=== PATIENT | female | born 1950 | race African-American/Black ===

== ENCOUNTER 2025-04-28 09:13 | Inpatient (IN) | payer MEDICARE, OTHER, SELFPAY ==
[2025-04-26] VITALS (8 sets, daily range): BP systolic 143–206; BP diastolic 84–101; BMI 38.8
[2025-04-26 15:24] LABS: % Basophils 0.3 % (0-2); % Eosinophils 5.2 % (0-6); % Immature Granulocytes 0.5 % (0-0.5); % Lymphocytes 26.5 % (20.5-51.1); % Monocytes 7.4 % (1.7-9.3); % Neutrophils 60.1 % (42.2-75.2); Absolute Eosinophils 0.3 10^3/uL (0-0.7); Absolute Lymphocytes 1.7 10^3/uL (1.2-3.4); Absolute Monocytes 0.5 10^3/uL (0.1-0.6); Absolute Neutrophils 3.8 10^3/uL (1.4-6.5); Hematocrit 31.5 % (37.0-47.0); Hemoglobin 10.3 g/dL (12.0-16.0); Mean Corp Hgb Conc. 32.7 g/dL (33.0-37.0); Mean Corpuscular Volume 82.7 fL (81.0-99.0); Nucleated Red Blood Cells % 0 %; Red Blood Cell Count 3.81 10^6/uL (4.20-5.40); Red Cell Dist. Width 15.3 % (11.5-14.5); White Blood Cell Count 6.3 10^3/uL (4.8-10.8)
[2025-04-26 15:47] LABS: ALT (SGPT) 22 U/L (0-35); AST (SGOT) 34 U/L (14-36); Albumin 3.8 g/dl (3.5-5.0); Alkaline Phosphatase 100 U/L (38-126); Blood Urea Nitrogen 15 mg/dl (7-17); Calcium 9.7 mg/dl (8.4-10.2); Carbon Dioxide 26 mmol/L (22-30); Chloride 108 mmol/L (98-107); Glucose 88 mg/dl (70-99); Potassium 4.6 mmol/L (3.5-5.1); Sodium 140 mmol/L (135-145); Total Bilirubin 0.7 mg/dl (0.2-1.3); Total Protein 6.9 g/dl (6.3-8.2); eGFR > 60.00
--- NOTE | 2025-04-26 18:50 | ED.GENMED ---
History of Present Illness
General
Chief Complaint: Dizziness
Source: patient
Exam Limitations: none
Time Seen by Provider: 04/26/25 17:06
Nursing documentation reviewed up to this point in time: agreed with
History of Present Illness
History of Present Illness:
Patient to ED with complaint of weakness, dizziness, confusion. She had LTHR on 04/20 at [facility]. She was discharged home late Wednesday. VN today concered that patient is unable to take care of self. She does not recall if she is taking her
medications and reports she has not been eating since she came home. SHe was offered inpatient rehab while at [facility] but declined. She now feels she needs the rehab as she is not able to care for herself at this time.
Past History
Past History
ED Past Medical History: GERD, HTN and Hypercholesterolemia
Review of Systems
Review of Systems
Allergies reviewed?: Yes
All Other Systems: ROS reviewed and negative except as documented in HPI and ROS
Constitutional: Reports fatigue
EENT: Reports no symptoms
Respiratory: Reports no symptoms
Cardiac: Reports no symptoms
ABD/GI: Reports no symptoms
: Reports no symptoms
Musculoskeletal: Reports other (S/P LTHR)
Skin: Reports other (Dressing intact left lat hip. No surrounding erythema.)
Neurological: Reports weakness and other (confusion)
Psychiatric: Reports no symptoms
Phy Exam
General Physical Exam
General Presentation: well appearing and no apparent distress
General age: appears stated age
General Skin: warm and dry
General Habitus: normal
Cardiovascular Exam
Cardiovascular Exam: regular rate/rhythm
Pulmonary Exam
Pulmonary Exam: lungs clear and no respiratory distress
Neurological Exam
Neurological Exam: alert, oriented x3, CN II-XII intact, no sensory deficits and speech normal
Musculoskeletal Exam
Musculoskeletal Exam: neuro vasc intact (Left hip dressing dry and intact)
Skin Exam
Skin Exam: normal color, warm/dry and no rash
Psychiatric Exam
Psychiatric Exam: normal mood/affect
Course
Orders/Labs/Results
Orders:
Orders
04/26/25 Dinner
Sodium, 4 Gram (OSCAR)
At Your Request: Full Participation
Does patient need a safe tray?: No
04/26/25 15:02
Comprehensive Metabolic Panel Urgent
04/26/25 15:03
Complete Blood Count/With Diff Urgent
04/26/25 17:13
CT Head W/o Iv Contrast Urgent
Comment:
Reason For Exam: confusion
Case Management Consult ONCE
Case Management Consult: Discharge Planning
04/26/25 19:49
Admit/Transfer Patient As Directed
Co-Sign Provider:
Level of Care: Observation services
Assign to:: Telemetry
Physician / Group: Zak
Diagnosis: Confusion, Hypertension, s/p JUAN
Reason for Telemetry: CVA/TIA
Date to Stop Telemetry: 04/29/25
Time to Stop Telemetry: 11:00
PRN Pain Medication Management As Directed
May give lesser potent ordered pain med per pt: Yes
preference::
Protocol:: Medication orders for pain may be administered in a
manner that supports deferring to patient preference
when the pt is:
- Requesting an ordered lesser potent pain medication.
Least to most potent pain medications are defined
as: acetaminophen < NSAID < tramadol < opioids
(morphine, oxycodone, hydromorphone).
- Requesting a lesser dose of the same medication IF
ORDERED.
- Requesting a less intrusive route of administration
if both routes are prescribed by the provider (PO <
IV).
04/26/25 19:50
Code Status As Directed
Resuscitation Status: Full Code
04/26/25 19:58
HydrALAZINE [Apresoline] 5 mg IV Q6HPRN PRN
04/26/25 20:14
Urinalysis Reflex To Culture Urgent
Date Specimen was Collected: 04/26/25
Time Specimen was Collected: 14:42
04/26/25 21:30
Docusate Sodium [Colace] 100 mg PO BID
Heparin 5,000 units SC Q12
Ibuprofen [Motrin] 600 mg PO Q6HPRN PRN
Lisinopril [Zestril] 20 mg PO BID
Oxycodone [Roxicodone] 5 mg PO Q4HPRN PRN
Polyethylene Glycol Powder [Miralax] 17 grams PO DAILYPRN PRN
04/26/25 21:30
Activity As Directed
Activity Level: Ambulate
With Assistance
Bladder Scan As Directed
Follow Bladder Retention/Intermittent Cath Algorithm?: Yes
PRN if no void in __ hours: 6
Frequency: Per Retention Algorithm
If Bladder Scan Result >: 400
then:: Straight cath
I/O [Intake/ Output] As Directed
Frequency: Per unit guidelines
Neurological Checks As Directed
Frequency: q4h
Records Request [Obtain Records] As Directed
Dates of Information to be Released: Most Recent
Type of Information Requested: Entire Record
Obtain Records from: Sandeep Carrasco
Straight Cath As Directed
Frequency: Per Retention Algorithm
Additional Instructions: straight cath as needed per acute urinary retention algorithm for 24 hrs
Additional Instructions: for bladder scan greater than 400 mL
Vital Signs As Directed
Frequency: Per unit guidelines
Weight As Directed
Frequency: Daily
Oxygen Therapy [O2 Therapy] [RESP] Routine
Titrate/Wean O2 to maintain O2 sat greater than (%): 94
Ot Eval And Treat Routine
PT Consult [Pt Eval And Treat] Routine
Activity Level: Ambulate
With Assistance
Speech Therapy Eval & Treat Routine
DX Deep Vein Thrombosis Video Routine
04/26/25 22:00
Acetaminophen [Tylenol] 1,000 mg PO TID
Sennosides [Senokot] 17.2 mg PO HS
04/26/25 22:04
Glycohemoglobin (HgbA1c) Routine
TSH Reflex To Free T4 Routine
04/27/25 06:00
MR Brain Without Contrast IN AM
Comment:
Reason For Exam: CVA / TIA
Recent pill cam endoscopy?: No
04/27/25 07:17
Basic Metabolic Panel IN AM
Cardiovascular Evaluation IN AM
Complete Blood Count/No Diff IN AM
04/27/25 08:00
Aspirin 325 mg PO DAILY
Indapamide [Lozol] 2.5 mg PO DAILY
04/29/25 11:00
DC Protocol for Telemetry ONCE
Abnormal Lab Results
04/26/25 04/26/25 04/26/25
15:02 15:03 20:14
RBC 3.81 L 10^6/uL
(4.20-5.40)
Hgb 10.3 L g/dL
(12.0-16.0)
Hct 31.5 L %
(37.0-47.0)
MCHC 32.7 L g/dL
(33.0-37.0)
RDW 15.3 H %
(11.5-14.5)
Chloride 108 H mmol/L
(98-107)
Urine Ketones 2+ A
(Negative)
04/26/25 15:03
04/26/25 15:02
Vital Signs
Initial and Last Documented VS:
Initial Vital Signs
Temp Pulse Resp BP Pulse Ox
98.0 F 100 16 170/101 98
04/26/25 14:36 04/26/25 14:36 04/26/25 14:36 04/26/25 14:36 04/26/25 14:36
Last Documented Vital Signs
Temp Pulse Resp BP Pulse Ox
98.1 F 74 16 171/88 95
04/27/25 19:00 04/27/25 19:00 04/27/25 19:00 04/27/25 19:00 04/27/25 19:00
*Critical Care Note
Total Time (30-74mins, 75-104mins- exclusive of procedures): Not Applicable
Update Note
Update Note:
Patient to ED for eval or weakness and confusion. LTHR 04/20. Offered inpatient rehab but declined. States she returned home late on Wednesday and is not able to care for self. She does not recall eating or taking her meds. VN eval today and
advised transport to ED for further evaluation SHe is now requesting rehab placement. Labs, CT reviewed. No concerning findings. Will admit to hospitalist mely. Case management consult placed for admission to rehab facility.
ED Attending Note
-
Portions of this chart may have been created with voice recognition software.� Occasional wrong word or��sound alike� substitutions may have occurred due to the inherent limitations of voice recognition software.
Discharge Plan
Departure
Patient Disposition: Admit
Date of Disposition: 04/26/25
Time of Disposition: 19:01
Presentation/result/management discussed w/ accepting MD/DO: Hospitalist
Patient with high blood pressure during this ER visit?: No
Condition: Fair
Covid-19: Not Applicable
Discharge Problem:
Weakness
Interventions
Interventions:
*Risk Screen - Suicide Last Done: 04/26/25 14:36
*General Assessment Last Done: 04/26/25 19:43
*Neglect/Abuse Screening Last Done: 04/26/25 14:36
*ED- Fall Risk Assessment Last Done: 04/26/25 21:15
*ED COVID-19 Vaccine History Last Done: 04/26/25 17:27
*Nursing Disposition Last Done: 04/26/25 21:15
ED- Neurological Assessment Last Done: 04/26/25 17:26
ED Swallowing Screen Last Done: 04/26/25 17:26
Discharge Date and Time
Discharge Date/Time: 04/26/25 21:40
--- NOTE | 2025-04-26 19:55 | HPS.HSE ---
Family Physician
-
Family Physician: NOT KNOW UNKNOWN - PT DOES
Chief Complaint
-
Confusion / Weakness
History of Present Illness
Patient is a 75y F with PMH significant for hypertension who presents to ED complaining of confusion and weakness. Patient states that she underwent L JUAN at [facility] on 04/20/25. She notes that the initial plan was for SNF / rehab; however,
she was doing well with PT prior to discharge and was instead discharged to home. Patient returned home yesterday. She woke from a nap in the evening and attempted to use her phone to place a food order for dinner. She states that she was unable
to work her phone and could not figure out how to use it. This AM, she was able to call and speak with her daughter. She felt somewhat improved but still 'woozy'. She denies any headache, vision changes, noted speech changes, numbness or tingling
of the extremities.
She was seen by VN today who was concerned with her story and it was recommended that patient present to the ED for evaluation.
Patient denies any prior history of GA, stroke, etc.
Medical History
Past Medical History
Past Medical History: Reports Other
Additional Past Medical History:
Hypertension
Vitiligo
Past Surgical History: Reports Other
Additional Past Surgical History:
L JUAN
(multiple)
Ex Lap / KEV
Social History
Tobacco: Non-smoker
Alcohol: Occasional
Drug: None
Living: Alone
Family History
Family History: Not pertinent
Allergies / Home Medications
Allergies reflects when Allergies were last updated in [employer] [facility].
Home Medications with original date entered in [employer] [facility]
Allergy/Medication List:
Allergies
Allergy/AdvReac Type Severity Reaction Status Date / Time
No Known Allergies Allergy Verified 04/26/25 14:41
Home Medications
lansoprazole 30 mg capsule,delayed release 30 mg PO DAILY 04/26/25
Patient states that she takes lisinopril and indapamide. She does not recall doses.
Review of Systems
-
History Source: Patient
A 12 point ROS was completed and negative except as noted: Yes
Constitutional: Reports Fatigue; Denies Fever or Chills
Respiratory: Denies Cough or Trouble Breathing
Cardiac: Denies Chest Pain or Palpitations
Abdomen/GI: Reports Constipated; Denies Abdominal Pain, Nausea, Vomiting or Diarrhea
: Denies Dysuria or Frequency
Musculoskeletal: Reports Joint Pain; Denies Edema
Neurological: Reports Dizzy; Denies Headache, Weakness or Numbness
Psych: Denies Depression or Anxiety
Physical Exam
Vital Signs
Vital Signs
Temp Pulse Resp BP Pulse Ox
98.0 F 94 18 187/89 94
04/26/25 14:36 04/26/25 19:30 04/26/25 19:30 04/26/25 19:43 04/26/25 17:30
Physical Exam
General: Other (75y F in no acute distress. )
HEENT: Other (Vitiligo. Soft, non-tender fatty lesion L neck. Chronic per pt.)
Respiratory: Clear; No Wheezes, Rales or Rhonchi
Cardiac: S1/S2 and Regular Rhythm; No Murmur
GI: Soft, Non Tender, Non Distended and Normal Bowel Sounds
Musculoskeletal: No Clubbing, No Cyanosis, No Edema and Other (Dressing in place over L lateral thigh without strikethrough / surrounding redness / etc.)
Neuro: AO x 3 and Nonfocal/grossly intact
Psych: No Anxious or Depressed
Laboratory Results
-
04/26/25 15:03
04/26/25 15:02
Laboratory Results
Total Bilirubin 0.7 mg/dl (0.2-1.3) 04/26/25 15:02
AST 34 U/L (14-36) 04/26/25 15:02
ALT 22 U/L (0-35) 04/26/25 15:02
Alkaline Phosphatase 100 U/L (38-126) 04/26/25 15:02
Impression/Plan
-
A/P: Patient is a 75y F with PMH significant for hypertension who presents to ED for evaluation of confusion / weakness.
Confusion / Weakness
- Observe overnight for further evaluation and treatment.
- Patient with inability to use her phone last PM after waking from a nap.
- Suspect this reflects narcotic use, recent surgery, waking from sleep, etc.
- Continues to feel somewhat 'woozy' this AM.
- CT head unremarkable in the ED. Neuro exam is non-focal.
- Follow for any changes. Check MRI in AM for completeness.
s/p L JUAN
- Patient reports surgery at [facility] on 04/20.
- Some post-op discomfort in the hip. Surgery site well-appearing.
- PT / OT evaluations.
- Consider SNF placement rather than return home alone.
- Continue pain control, bowel regimen, etc.
- Continue full-dose ASA for post-op DVT prophylaxis.
Uncontrolled Hypertension
- Significant elevation in BP noted here in the ED.
- ? reflective of missed meds at home v recent TIA / CVA as noted above.
- Resume usual lisinopril / indapamide - need to clarify doses with pharmacy in the AM.
- IV hydralazine as needed for very high BP.
- Adjust regimen as needed for improved control.
- Pt notes that BP was running low post-op. ? if med changes were made at that time.
DVT Prophylaxis: Subcut Heparin
Code Status: Full
[2025-04-26 20:21] LABS: Urine Albumin Negative (Neg - Trace); Urine Bilirubin Negative (Negative); Urine Character Clear (Clear); Urine Color Yellow; Urine Glucose Negative (Negative); Urine Ketone 2+ (Negative); Urine Leukocyte Negative (Negative); Urine Nitrite Negative (Negative); Urine Occult Blood Negative (Negative); Urine Urobilinogen 1+ (Neg - 1+)
[2025-04-26] MEDS: TYLENOL 1000 MG PO (22:10)
[2025-04-26] MEDS: HEPARIN 5000 UNITS SC (22:11)
[2025-04-26] MEDS: SENOKOT 17.2 MG PO (22:11)
[2025-04-26] MEDS: ZESTRIL 20 MG PO (22:11)
[2025-04-26] MEDS: COLACE 100 MG PO (22:11)
[2025-04-26 22:59] LABS: TSH Reflex To Free T4 0.67 uIU/ml (0.47-4.68)
--- NOTE | 2025-04-26 23:11 | PTCARENOTE ---
21:30 pt rec'vd from ER, aaox3 able to make needs known, pts neuro checks WNL , pt is forgetful at times regarding the use of call rivers, bed alarm in place. pt oriented to unit.
[2025-04-27] VITALS (7 sets, daily range): BP systolic 134–191; BP diastolic 76–95; PULSE 94–96; O2SAT 98; BMI 38.6
[2025-04-27 07:30] LABS: Hematocrit 29.3 % (37.0-47.0); Hemoglobin 9.5 g/dL (12.0-16.0); Mean Corp Hgb Conc. 32.4 g/dL (33.0-37.0); Mean Corpuscular Hgb 27.5 pg (27.0-31.0); Mean Corpuscular Volume 84.7 fL (81.0-99.0); Mean Platelet Volume 9.7 fL (7.4-10.4); Platelet Count 326 10^3/uL (130-400); Red Blood Cell Count 3.46 10^6/uL (4.20-5.40); Red Cell Dist. Width 15.3 % (11.5-14.5); White Blood Cell Count 5.7 10^3/uL (4.8-10.8)
--- NOTE | 2025-04-27 07:43 | W.PN.HOSP.TC ---
Today's Communication/Plan
-
Pending MRI brain,
patient will need rehab on discharge.
Assessment / Plan
Assessment / Plan
Impression:
Patient is a 75y F with PMH significant for hypertension who presents to ED complaining of confusion and weakness. Patient states that she underwent L JUAN at [facility] on 04/20/25. She notes that the initial plan was for SNF / rehab; however,
she was doing well with PT prior to discharge and was instead discharged to home. Patient returned home yesterday. She woke from a nap in the evening and attempted to use her phone to place a food order for dinner. She states that she was unable
to work her phone and could not figure out how to use it. Later patient felt somewhat improved but still 'woozy'. She denies any headache, vision changes, noted speech changes, numbness or tingling of the extremities.
CT head in the ER came back showing no acute pathology, admitted for MRI brain to rule out stroke
Assessment/plan:
Confusion / Weakness rule out acute CVA.
Suspect this reflects narcotic use, recent surgery, waking from sleep, etc.
CT head done in the ER shows no acute finding
Admitted to telemetry
Frequent neurocheck.
Allow permissive hypertension.
MRI brain pending
PT/OT consult recommending rehab
Social service for discharge.
Urinalysis with no evidence of UTI
s/p L JUAN
- Patient reports surgery at [facility] on 04/20.
- Some post-op discomfort in the hip. Surgery site well-appearing.
- PT / OT evaluations.
- Consider SNF placement rather than return home alone.
- Continue pain control, bowel regimen, etc.
- Continue full-dose ASA for post-op DVT prophylaxis.
Hypertensive urgency
Improved.
Hold blood pressure medicine to allow permissive hypertension till MRI done
CODE STATUS: Full code
DVT prophylaxis: Heparin
Diet: Cardiac diet.
Disposition: Pending MRI brain, patient will need discharge to rehab
Total time spent on today's encounter was 65 minutes which included time spent in counseling the patient/family regarding diagnosis and treatment plan as listed above, goals of care, and symptom management. Case was discussed with nursing staff,
specialists, and care coordinators/case management. All labs and imaging personally reviewed by me. Remainder the time spent in detailed review of previous records, lab data, imaging, and other medical provider documentation.
Anticipated Discharge: 24 - 48 hours
Subjective/Interval History
-
Date of Service: April 27, 2025
Patient is awake but not fully oriented, denies chest pain or shortness of breath.
Physical therapy recommending rehab.
Objective Data
-
Labs:
Laboratory Results
04/27/25
07:17
WBC 5.7
Hgb 9.5 L
Hct 29.3 L
Plt Count 326
Sodium Pending
Potassium Pending
Chloride Pending
Carbon Dioxide Pending
BUN Pending
Creatinine Pending
Glucose Pending
Calcium Pending
Vital Signs:
Vital Signs
Temp Pulse Resp BP Pulse Ox
98.0 F 92 18 143/95 97
04/26/25 21:48 04/26/25 21:48 04/26/25 21:48 04/26/25 21:48 04/26/25 21:48
Physical Exam
-
General: Well Developed, Well Nourished, No Apparent Distress and Comfortable
HEENT: Normocephalic, Atraumatic, Moist Mucous Membranes, No Ptosis, PERRLA and Nose Appears Normal
Respiratory: Clear to Auscultation and Non Labored Respirations
Cardiac: Regular Rhythm and S1/S2
Breast: Deferred by me
GI: Soft, Nontender, Nondistended and Normal Bowel Sounds
Genito-urinary: No Costovertebral Tender
Musculoskeletal: No Clubbing, No Cyanosis and No Edema
Skin: Warm
Neuro: Awake and Alert
Psych: Calm and Confused
Data Reviewed
-
Diagnostic Radiology: Image personally visualized and interpreted and Report Reviewed by me
CT Scan: Image personally visualized and interpreted and Report Reviewed by me
Ultrasound: Image personally visualized and interpreted and Report Reviewed by me
MRI: Image personally visualized and interpreted and Report Reviewed by me
Medical Tests (Nuc Med, Echo etc): Image personally visualized and interpreted and Report Reviewed by me
Labs: Labs Reviewed by me
Old Records: Reviewed
[2025-04-27 08:34] LABS: Blood Urea Nitrogen 13 mg/dl (7-17); Calcium 9.3 mg/dl (8.4-10.2); Carbon Dioxide 27 mmol/L (22-30); Chloride 108 mmol/L (98-107); Estimated Creatinine Clearance 59 ml/min; Glucose 83 mg/dl (70-99); HDL Cholesterol 42 mg/dl; LDL Cholesterol, Calculated 125 mg/dl; Potassium 4.1 mmol/L (3.5-5.1); Sodium 140 mmol/L (135-145); Total Cholesterol 188 mg/dl (50-199); Triglyceride 109 mg/dl (10-149); Very Low Density Lipoprotein 21 mg/dl (0-30); eGFR > 60.00
[2025-04-27] MEDS: COLACE 100 MG PO (08:36)
[2025-04-27] MEDS: ASPIRIN 325 MG PO (08:36)
[2025-04-27] MEDS: LOZOL 2.5 MG PO (08:36)
[2025-04-27] MEDS: HEPARIN 5000 UNITS SC ×2 (08:36→19:58)
[2025-04-27] MEDS: TYLENOL 1000 MG PO ×3 (08:36→21:43)
[2025-04-27 10:06] LABS: Glycohemoglobin (HgbA1c) 5.9 % (4.0-5.6)
--- NOTE | 2025-04-27 10:59 | CM ---
Addendum entered by Geneva Sauceda 04/27/25 14:57:
In attempts to receive the below information, this CM called [facility] case management x2 and left 2 messages [phone]. Also called medical records [phone]. MR was not allowed to supply any information but referred me to Patient Relations
([facility] main # and ask for Pt. Relations).
There was no answer and the voice message said 'No one is available, leave message'. Detailed message left and requested return call as soon as possible. No calls have been returned. As noted before, also spoke with daughter, Michelle, who says she
has no information or access to information???
Addendum entered by Geneva Sauceda 04/27/25 11:17:
Awaiting return call from [facility].
Original Note:
Patient had a JUAN at [facility] on 04/20/25. She was accepted to a SNF but then PT said she was doing well and could go home. Patient went home and yesterday began with confusion, forgetfulness and weakness. She was admitted to . Patient
does not have her insurance cards. This CM called daughter Michelle who said she cannot obtain them? therapy is recommending SNF. Patient is on OBS status. This CM called [facility] case management department for insurance info as well as
facility patient was accepted to. Patient does not remember the name of the facility but would like to go there. If patient had 3 night stay at [facility] she satisfies the 3 night stay rule if she has Medicare.
Initial assessment completed with patient. Patient lives alone in a 2nd floor apartment with 5 steps into the building and 5 steps to 2nd floor. 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 She has adaptive equipment for grooming and
dressing. She does not drive. No service. Her daughter Michelle, is a paid caregiver. Support system is Michelle, another daughter in [facility] 2 sons, one in [place] and one in [place]. She does not recall her PCP. [facility]acy is [facility] [address] in [place]. Some noted forgetfulness during the assessment.
Hospitalist aware of above.
[2025-04-27] MEDS: COLACE PO ×2 (19:56→20:01)
[2025-04-27] MEDS: SENOKOT PO ×2 (19:56→21:37)
[2025-04-28] VITALS (8 sets, daily range): BP systolic 136–171; BP diastolic 70–94; PULSE 71–72; O2SAT 96; BMI 38.1
[2025-04-28] MEDS: MOTRIN 600 MG PO (04:13)
[2025-04-28] MEDS: TYLENOL 1000 MG PO ×3 (09:00→21:17)
[2025-04-28] MEDS: ASPIRIN 325 MG PO (09:00)
[2025-04-28] MEDS: COLACE PO (09:01)
[2025-04-28] MEDS: HEPARIN 5000 UNITS SC ×2 (09:01→19:37)
--- NOTE | 2025-04-28 09:22 | CON.NEURO ---
Neuro Assessment/Plan
Assessment
Abrupt onset of confusion
MRI of brain demonstrates subacute ischemic stroke, left hemispheric
Most likely thromboembolic
Patient was not a candidate for either tenecteplase or intra-arterial thrombectomy due to timeframe out of window and NIH strokes DL less than 6
Plan
outpatient Echo and implantable cardiac rhythm monitor
Continue aspirin 325 mg as being dosed to reduce risk of thromboembolism following recent orthopedic procedure
Initiate atorvastatin 80 mg nightly
Goal of normotension
Goal of normoglycemia
Provide medical educational materials
Rehabilitation evaluations and treatment
Will follow peripherally
Consultation
Order
Date of Consultation: 04/28/25
Requesting Provider: Hospitalists
Reason for Consult: Stroke
Subjective/Objective
Subjective Data
Date of Service: April 28, 2025
Right-Handed
Patient had surgical intervention [L JUAN at [facility] on 04/20/25] then planning for rehabilitation which was changed to going to home directly. Patient experienced a mild sense of confusion immediately after surgery which resolved after a few
hours.
Patient then developed a sense of confusion (April 23, 2025) which was manifested by difficulty with decision making and use of phone. Also experiencing unusual, vivid dreams. Patient reports that confusion has been persistent, less intently. No prior
events. No known modifying factors.
Objective Data
Vital Signs
Temp Pulse Resp BP Pulse Ox
37.1 C 77 18 167/79 97
04/28/25 07:00 04/28/25 07:00 04/28/25 07:00 04/28/25 07:00 04/28/25 07:00
Lab Results
04/27/25 07:17
04/27/25 07:17
Sodium 140 mmol/L (135-145) 04/27/25 07:17
Potassium 4.1 mmol/L (3.5-5.1) 04/27/25 07:17
BUN 13 mg/dl (7-17) 04/27/25 07:17
Glucose 83 mg/dl (70-99) 04/27/25 07:17
Calcium 9.3 mg/dl (8.4-10.2) 04/27/25 07:17
LDL Cholesterol, Calc 125 mg/dl 04/27/25 07:17
Patient Allergies
No Known Allergies Allergy (Verified 04/26/25 14:41)
CVA Assessment
Onset of Stroke Symptoms
Onset of symptoms known: No
Date of onset of symptoms: 04/23/25
Time pt last seen normal is known: No
Date last time pt seen normal: 04/23/25
NIH Stroke Score
Level of Consciousness: 0 - Alert
LOC Questions: 0-Answers both correctly
LOC Commands: 0-Performs both correctly
Best Horizontal Gaze: 0-Normal
Visual Nazario: 0=Normal, no visual loss
Facial Palsy: 0=Normal, symmetrical
Motor - Right Arm: 0=No drift 10 seconds
Motor - Left Arm: 0=No drift 10 seconds
Motor - Right Le-No drift 5 seconds
Motor - Left Le-No drift 5 seconds
Limb Ataxia: 0-Absent
Sensation: 0-Normal
Best Language: 0-No aphasia
Dysarthria: 0-Normal
Extinction and Inattention: 0-No abnormality
NIH Total Score:: 0
Tenecteplase Contraindications
Inclusion and Exclusion criteria reviewed: Yes
Reasons for NON-Tx with Thrombolytics ABSOLUTE Exclusions: Time-out of window
IAT Contraindications: >6 hrs from onset/last seen normal
Review of Systems
-
History Source: Patient
All other systems: Reviewed and negative
EENT: Negative Blurry Vision or Swallowing Difficulty
Respiratory: Negative Trouble Breathing
Cardiac: Negative Chest Pain
Abdomen/GI: Negative Incontinence of Stool
Genitourinary: Negative Incontinence
Musculoskeletal: Negative Back Pain or Neck Pain
Neuro: Negative Dizzy or Headache
Physical Exam
-
General: No Apparent Distress and Appears Stated Age
Eyes: Round OU, [place] Conjunctivae and No Ptosis; Negative Able to visualize OU
HEENT: Anicteric and Moist Mucous Membranes
Neck: Full Range of Motion
Respiratory: No Dyspnea
Cardiac: No JVD
GI: Non-distended
Skin: Unremarkable
Extremities: No Clubbing, No Cyanosis and No Edema
Psych: Intact Judgement/Insight
Extended Neurological Exam
Mood & Affect: Mood Unremarkable and Affect Unremarkable
Attention Span & Concentration: Awake, Alert, Interactive and No Difficulty with 2 Step Request
Memory: Unremarkable
Tremor: Hand Tremor Absent and Head Tremor Absent
Speech: Quality Unremarkable and Quantity Unremarkable
Cranial Nerve II: Left Eye: Pupillary Reactivity Unremarkable, Pupillary Size Unremarkable and Visual Nazario Intact
Cranial Nerve II: Right Eye: Pupillary Reactivity Unremarkable, Pupillary Size Unremarkable and Visual Nazario Intact
Cranial Nerves III, IV, : Extraocular Movement: Extraocular Movement Full in all Directions
Cranial Nerve VII: Facial Symmetry: Normal Facial Symmetry
Cranial Nerve VIII: Hearing: Unremarkable Hearing to Normal Conversational Volume
Cranial Nerves IX, X: Palate Movement: Palate Elevation Symmetric
Cranial Nerve XI: Shoulder Shrug: Unremarkable
Cranial Nerve XII: Tongue Protusion: Midline
Muscle Strength, Overall: Full Throughout
Muscle Bulk & Tone: Bulk Unremarkable and Tone Unremarkable
Pronator Drift: No Drift in Upper Extremities
Deep Tendon Reflexes: Unremarkable Throughout
Touch Sensation: Unremarkable
Coordination: [id number] Testing Unremarkable
Babinski Sign: Absent Bilaterally
Data Reviewed
-
MRI Head: Report Reviewed and Image Reviewed
Labs: Report Reviewed
Reviewed with: Physician and Patient
Old Records: Summarized
Medications
-
Active Medications
Generic Name Dose Route Start Last Admin
Trade Name Freq PRN Reason Stop Dose Admin
Acetaminophen 1,000 mg 04/27/25 22:00 04/28/25 09:00
Acetaminophen 500 Mg Tablet PO 05/25/25 21:59 1,000 mg
TID ROSENDO Administration
Aspirin 325 mg 04/27/25 08:00 04/28/25 09:00
Aspirin 325 Mg Tablet PO 05/25/25 07:59 325 mg
DAILY ROSENDO Administration
Docusate Sodium 100 mg 04/26/25 21:30 04/28/25 09:01
Docusate Sodium 100 Mg Capsule PO 05/24/25 21:29 Not Given
BID ROSENDO
Heparin Sodium 5,000 units 04/26/25 21:30 04/28/25 09:01
Heparin 5,000 Units/Ml 1 Ml Vial SC 05/24/25 21:29 5,000 units
Q12 ROSENDO Administration
Hydralazine HCl 5 mg 04/27/25 02:35
Hydralazine 20 Mg/Ml Vial IV 05/25/25 02:34
Q6HPRN PRN
SBP > 200
Ibuprofen 600 mg 04/26/25 21:30 04/28/25 04:13
Ibuprofen 600 Mg Tablet PO 05/24/25 21:29 600 mg
Q6HPRN PRN Administration
Moderate Pain
Indapamide 2.5 mg 04/27/25 08:00 04/27/25 08:36
Indapamide 2.5 Mg Tablet PO 05/25/25 07:59 2.5 mg
On Hold: 04/27/25 09:00 DAILY ROSENDO Administration
Lisinopril 20 mg 04/26/25 21:30 04/26/25 22:11
Lisinopril 20 Mg Tablet PO 05/24/25 21:29 20 mg
On Hold: 04/27/25 08:00 BID ROSENDO Administration
Oxycodone HCl 5 mg 04/26/25 21:30
Oxycodone 5 Mg Regular Release Tablet PO 05/10/25 21:29
Q4HPRN PRN
severe pain
Polyethylene Glycol 17 grams 04/26/25 21:30
Polyethylene Glycol Powder 17 Grams Packet PO 05/24/25 21:29
DAILYPRN PRN
Constipation
Sennosides 17.2 mg 04/26/25 22:00 04/27/25 21:37
Sennosides (Senokot) 8.6 Mg Tablet PO 05/24/25 21:59 Not Given
HS ROSENDO
Sodium Chloride 0 flush 04/26/25 22:00
Sodium Chloride 0.9% (Flush) Syringe IV 05/24/25 21:59
PER PROTOCOL ROSENDO
Home Medications
�Medication �Instructions �Recorded
aspirin 81 mg tablet,delayed 81 mg PO BID Blood Clot 04/26/25
release Prevention/Tx
indapamide 2.5 mg tablet 2.5 mg PO DAILY Antihypertensive; 04/26/25
Diureti
lansoprazole 30 mg capsule,delayed 30 mg PO DAILY GERD 04/26/25
release
lisinopril 40 mg tablet 40 mg PO DAILY Blood Pressure 04/26/25
oxycodone 5 mg tablet 5 mg PO Q6HPRN PRN severe pain 04/26/25
sennosides 8.6 mg tablet (senna) 8.6 mg PO DAILYPRN PRN constipation 04/26/25
Past History
Past History
ED Past Medical History: GERD, HTN, Hypercholesterolemia and Other (vitiligo)
ED Past Surgical History: , Orthopedic (L JUAN ) and Urological (? D&C)
Social History
Tobacco: Former smoker (stopped )
Alcohol: Binge drinker (Previously)
Drug: None
Personal: Single
Living: with family
Family History
Family History: Other (reviewed and non-contributory)
--- NOTE | 2025-04-28 11:07 | W.PN.HOSP.TC ---
Today's Communication/Plan
-
Neuro consult
Echo
CTA head/neck
Assessment / Plan
Assessment / Plan
Impression:
Patient is a 75y F with PMH significant for hypertension who presents to ED complaining of confusion and weakness. Patient states that she underwent L JUAN at [facility] on 04/20/25. She notes that the initial plan was for SNF / rehab; however,
she was doing well with PT prior to discharge and was instead discharged to home. Patient returned home yesterday. She woke from a nap in the evening and attempted to use her phone to place a food order for dinner. She states that she was unable
to work her phone and could not figure out how to use it. Later patient felt somewhat improved but still 'woozy'. She denies any headache, vision changes, noted speech changes, numbness or tingling of the extremities.
CT head in the ER came back showing no acute pathology, admitted for MRI brain to rule out stroke
Assessment/plan:
Acute CVA.
CT head done in the ER shows no acute finding
Continue engraver letter
Frequent neurocheck.
Allow permissive hypertension.
Neurology consulted.
MRI brain shows:
Small scattered acute or subacute infarcts in the bilateral cerebral white matter. The distribution would suggest embolic phenomenon.
CTA head and neck pending
Echo pending.
Check hemoglobin A1c 5.9
LDL 125
PT/OT consult.
Social service for discharge.
s/p L JUAN
- Patient reports surgery at [facility] on 04/20.
- Some post-op discomfort in the hip. Surgery site well-appearing.
- PT / OT evaluations.
- Consider SNF placement rather than return home alone.
- Continue pain control, bowel regimen, etc.
- Continue full-dose ASA for post-op DVT prophylaxis.
Hypertensive urgency
Improved.
allows permissive hypertension.
Will resume lisinopril tomorrow then indapamide after tomorrow.
CODE STATUS: Full code
DVT prophylaxis: Heparin
Diet: Cardiac diet.
Disposition: Neuro consult
Echo
CTA head/neck
Total time spent on today's encounter was 65 minutes which included time spent in counseling the patient/family regarding diagnosis and treatment plan as listed above, goals of care, and symptom management. Case was discussed with nursing staff,
specialists, and care coordinators/case management. All labs and imaging personally reviewed by me. Remainder the time spent in detailed review of previous records, lab data, imaging, and other medical provider documentation.
Anticipated Discharge: 24 - 48 hours
Subjective/Interval History
-
Date of Service: April 28, 2025
Patient seen and examined at bedside, confused but overall improved compared to yesterday.
Discussed MRI results with the patient.
Denies any chest pain or shortness of breath, no abdominal pain, no nausea, no vomiting, no diarrhea or constipation.
Objective Data
-
Vital Signs:
Vital Signs
Temp Pulse Resp BP Pulse Ox
98.7 F 77 18 167/79 97
04/28/25 07:00 04/28/25 07:00 04/28/25 07:00 04/28/25 07:00 04/28/25 07:00
Physical Exam
-
General: Well Developed, Well Nourished, No Apparent Distress and Comfortable
HEENT: Normocephalic, Atraumatic, Moist Mucous Membranes, No Ptosis, PERRLA and Nose Appears Normal
Respiratory: Clear to Auscultation and Non Labored Respirations
Cardiac: Regular Rhythm and S1/S2
Breast: Deferred by me
GI: Soft, Nontender, Nondistended and Normal Bowel Sounds
Genito-urinary: No Costovertebral Tender
Musculoskeletal: No Clubbing, No Cyanosis, No Edema and Other (Left hip surgical site clean)
Skin: Warm
Neuro: Awake and Alert
Psych: Calm and Confused
Data Reviewed
-
Diagnostic Radiology: Image personally visualized and interpreted and Report Reviewed by me
CT Scan: Image personally visualized and interpreted and Report Reviewed by me
Ultrasound: Image personally visualized and interpreted and Report Reviewed by me
MRI: Image personally visualized and interpreted and Report Reviewed by me
Medical Tests (Nuc Med, Echo etc): Image personally visualized and interpreted and Report Reviewed by me
Labs: Labs Reviewed by me
Old Records: Reviewed
[2025-04-28] MEDS: LIPITOR 80 MG PO (17:50)
[2025-04-28] MEDS: SENOKOT 17.2 MG PO (19:37)
[2025-04-28] MEDS: COLACE 100 MG PO (19:37)
[2025-04-28] MEDS: FLUSH (NSS) 1 FLUSH IV ×2 (19:40→19:41)
[2025-04-28] MEDS: MIRALAX 17 GRAMS PO (21:17)
[2025-04-29 03:00] VITALS: BP 161/80
[2025-04-29 06:00] VITALS: BMI 38.1
[2025-04-29 07:03] VITALS: BP 153/82
[2025-04-29] MEDS: ASPIRIN 325 MG PO (08:40)
[2025-04-29] MEDS: HEPARIN 5000 UNITS SC ×2 (08:40→20:06)
[2025-04-29] MEDS: COLACE 100 MG PO ×2 (08:40→20:05)
[2025-04-29] MEDS: TYLENOL 1000 MG PO ×3 (08:40→21:37)
[2025-04-29 11:33] VITALS: BP 173/90
--- NOTE | 2025-04-29 11:53 | CM ---
CM reviewed message from MD earlier this morning stating pt is medically stable for dishcarge. CM reviewed chart. Workup on admit showed acute CVA. PT eval/recs notes. OT ordered/requested and pending at this time. CM requested PM&R consult. Spoke
with pt and PT at bedside- pt agreeable to referral being sent to [facility] (send via [facility])- pending bed offer at this time. Anticipate dc within 24hrs pending outcome of the above.
CM/SW will continue to follow to ensure a safe and timely dc.
--- NOTE | 2025-04-29 12:09 | W.PN.HOSP.TC ---
Today's Communication/Plan
-
PM&R consult.
Medically cleared for discharge to acute rehab once bed available.
Assessment / Plan
Assessment / Plan
Impression:
Patient is a 75y F with PMH significant for hypertension who presents to ED complaining of confusion and weakness. Patient states that she underwent L JUAN at [facility] on 04/20/25. She notes that the initial plan was for SNF / rehab; however,
she was doing well with PT prior to discharge and was instead discharged to home. Patient returned home yesterday. She woke from a nap in the evening and attempted to use her phone to place a food order for dinner. She states that she was unable
to work her phone and could not figure out how to use it. Later patient felt somewhat improved but still 'woozy'. She denies any headache, vision changes, noted speech changes, numbness or tingling of the extremities.
CT head in the ER came back showing no acute pathology, admitted for MRI brain to rule out stroke.
MRI brain shows:
Small scattered acute or subacute infarcts in the bilateral cerebral white matter. The distribution would suggest embolic phenomenon.
CTA head and neck shows no major vessel occlusion.
Echo pending.
Assessment/plan:
Acute CVA.
CT head done in the ER shows no acute finding
Continue human resources consultant
Frequent neurocheck.
Allow permissive hypertension.
Neurology consulted.
MRI brain shows:
Small scattered acute or subacute infarcts in the bilateral cerebral white matter. The distribution would suggest embolic phenomenon.
CTA head and neck shows no major vessel occlusion.
Echo pending.
hemoglobin A1c 5.9
LDL 125
PT/OT consult.
Social service for discharge.
04/29
PM&R consult.
Medically cleared for discharge to acute rehab once bed available.
s/p L JUAN
- Patient reports surgery at [facility] on 04/20.
- Some post-op discomfort in the hip. Surgery site well-appearing.
- PT / OT evaluations.
- Consider SNF placement rather than return home alone.
- Continue pain control, bowel regimen, etc.
- Continue full-dose ASA for post-op DVT prophylaxis.
Hypertensive urgency
Improved.
allows permissive hypertension.
Will resume lisinopril tomorrow then indapamide after tomorrow.
CODE STATUS: Full code
DVT prophylaxis: Heparin
Diet: Cardiac diet.
Disposition: Rehab consult
Family communication: Discussed with daughter in the phone.
Total time spent on today's encounter was 65 minutes which included time spent in counseling the patient/family regarding diagnosis and treatment plan as listed above, goals of care, and symptom management. Case was discussed with nursing staff,
specialists, and care coordinators/case management. All labs and imaging personally reviewed by me. Remainder the time spent in detailed review of previous records, lab data, imaging, and other medical provider documentation.
Anticipated Discharge: Today
Subjective/Interval History
-
Date of Service: April 29, 2025
Patient seen and examined at bedside, denies any chest pain or shortness of breath, no abdominal pain, no nausea, no vomiting, no diarrhea or constipation.
Objective Data
-
Vital Signs:
Vital Signs
Temp Pulse Resp BP Pulse Ox
98.5 F 76 20 173/90 95
04/29/25 11:33 04/29/25 11:33 04/29/25 11:33 04/29/25 11:33 04/29/25 11:33
I&O
04/28/25 04/29/25 04/30/25
06:59 06:59 06:59
Intake Total 240 / 240 1140 / 1140
Balance 240 / 240 1140 / 1140
Physical Exam
-
General: Well Developed, Well Nourished, No Apparent Distress and Comfortable
HEENT: Normocephalic, Atraumatic, Moist Mucous Membranes, No Ptosis, PERRLA and Nose Appears Normal
Respiratory: Clear to Auscultation and Non Labored Respirations
Cardiac: Regular Rhythm and S1/S2
Breast: Deferred by me
GI: Soft, Nontender, Nondistended and Normal Bowel Sounds
Genito-urinary: No Costovertebral Tender
Musculoskeletal: No Clubbing, No Cyanosis, No Edema and Other (Left hip surgical site clean)
Skin: Warm
Neuro: Awake, Alert and AO x 3
Psych: Calm
Data Reviewed
-
Diagnostic Radiology: Image personally visualized and interpreted and Report Reviewed by me
CT Scan: Image personally visualized and interpreted and Report Reviewed by me
Ultrasound: Image personally visualized and interpreted and Report Reviewed by me
MRI: Image personally visualized and interpreted and Report Reviewed by me
Medical Tests (Nuc Med, Echo etc): Image personally visualized and interpreted and Report Reviewed by me
Labs: Labs Reviewed by me
Old Records: Reviewed
[2025-04-29 12:11] VITALS: BP 176/86; BP 179/98; PULSE 74; O2SAT 99
--- NOTE | 2025-04-29 15:53 | W.PN.NEURO.1 ---
Today's Communication / Plan
-
outpatient Echo and implantable cardiac rhythm monitor
Continue aspirin 325 mg as being dosed to reduce risk of thromboembolism following recent orthopedic procedure; alternative would be to use aspirin 81 mg daily and clopidogrel for 21 days with discontinuance after that timeframe
Initiate atorvastatin 80 mg nightly
Neuro Assessment/Plan
Assessment
Abrupt onset of confusion
MRI of brain demonstrates subacute ischemic stroke, left hemispheric
Most likely thromboembolic
Patient was not a candidate for either tenecteplase or intra-arterial thrombectomy due to timeframe out of window and NIH strokes DL less than 6
Plan
outpatient Echo and implantable cardiac rhythm monitor
Continue aspirin 325 mg as being dosed to reduce risk of thromboembolism following recent orthopedic procedure; alternative would be to use aspirin 81 mg daily and clopidogrel for 21 days with discontinuance after that timeframe
Initiate atorvastatin 80 mg nightly
Goal of normotension
Goal of normoglycemia
Provide medical educational materials
Rehabilitation evaluations and treatment
Will follow peripherally
Subjective/Objective
Subjective Data
Date of Service: April 29, 2025
Objective Data
Vital Signs
Temp Pulse Resp BP Pulse Ox
36.9 C 76 20 173/90 95
04/29/25 11:33 04/29/25 11:33 04/29/25 11:33 04/29/25 11:33 04/29/25 11:33
Lab Results
04/27/25 07:17
04/27/25 07:17
Sodium 140 mmol/L (135-145) 04/27/25 07:17
Potassium 4.1 mmol/L (3.5-5.1) 04/27/25 07:17
BUN 13 mg/dl (7-17) 04/27/25 07:17
Glucose 83 mg/dl (70-99) 04/27/25 07:17
Calcium 9.3 mg/dl (8.4-10.2) 04/27/25 07:17
LDL Cholesterol, Calc 125 mg/dl 04/27/25 07:17
Patient Allergies
No Known Allergies Allergy (Verified 04/26/25 14:41)
[2025-04-29] MEDS: LIPITOR 80 MG PO (16:47)
[2025-04-29] MEDS: SENOKOT 17.2 MG PO (20:05)
[2025-04-29] MEDS: ZESTRIL 20 MG PO (20:05)
[2025-04-29 23:00] VITALS: BP 172/79
[2025-04-30 06:00] VITALS: BMI 38.7
[2025-04-30 07:50] VITALS: BP 149/82
[2025-04-30] MEDS: PLAVIX 75 MG PO (09:45)
[2025-04-30] MEDS: LOW STRENGTH ASPIRIN 81 MG PO (09:45)
[2025-04-30] MEDS: TYLENOL 1000 MG PO (09:45)
[2025-04-30] MEDS: COLACE 100 MG PO ×2 (09:45→21:08)
[2025-04-30] MEDS: HEPARIN 5000 UNITS SC ×2 (09:46→21:08)
[2025-04-30] MEDS: LOZOL 2.5 MG PO (09:46)
[2025-04-30] MEDS: ZESTRIL 20 MG PO ×2 (09:49→21:09)
--- NOTE | 2025-04-30 10:02 | CM ---
CM following re: discharge planning.
Reviewed pt's chart, met with pt.
Per director of case management, pt was upgraded to inpatient level of admission over the weekend. IMM reviewed, placed on chart, pt has a copy.
PT and OT evaluation noted - acute rehab level of care recommended.
Per CM mote a plan is for pt to go to [facility]. Pt is aware, expressed her understanding and agreement.
[facility] physician following.
D/C plan: [facility] when medically stable.
CM will follow to assist pt with discharge to [facility].
[2025-04-30] MEDS: ROXICODONE 5 MG PO (10:50)
--- NOTE | 2025-04-30 11:42 | W.PN.HOSP.TC ---
Today's Communication/Plan
-
Discharge planning
Assessment / Plan
Assessment / Plan
Physical exam:
General: Well Developed, Well Nourished and No Apparent Distress
HEENT: Normocephalic, Atraumatic and Moist Mucous Membranes
Respiratory: Clear to Auscultation; Negative Wheezes, Rales or Rhonchi
Cardiac: Regular Rhythm and S1/S2
GI: Soft, Nontender and Nondistended
Musculoskeletal: No Clubbing, No Cyanosis and No Edema
Neuro: Awake, Alert and Oriented, no neurological deficits appreciated on my exam
Psych: Calm
A/P:
Acute stroke, most likely thromboembolic:
MRI consistent with subacute ischemic stroke in bilateral cerebral white matter but neurology feels more in the left hemispheric.
CTA no significant LVO
Dual antibiotic therapy aspirin Plavix for 21 days and then mono therapy and continue statins
Outpatient implantable cardiac rhythm monitor evaluation with cardiology
Echocardiogram with normal ejection fraction and no thrombus
Rod Tape Operator consulted today
Medically stable for discharge-waiting for rehab
Updated daughter over the phone today
Hypertension-upon admission hypertensive urgency:
Continue indapamide 0.5 mg p.o. daily and lisinopril 40 mg daily (20 mg twice a day in the hospital)
Hyperlipidemia:
Continue statin
LDL 125
Recent left total hip arthroplasty:
Discontinue narcotics
Tylenol as needed
Heparin for DVT prophylaxis while here and upon discharge she will be on dual antiplatelet therapy-can consider Lovenox as outpatient.
Prediabetes:
Hemoglobin A1c 5.9
Lifestyle changes modification
Recheck BMP today
Anemia:
Stable over the last few days with mild drift
Repeat hemoglobin today
Vitiligo:
Outpatient follow-up
DVT prophylaxis:
Heparin SQ
CODE STATUS:
Full code
Anticipated Discharge: Today
Subjective/Interval History
-
Date of Service: April 30, 2025
Complaints of mild left hip discomfort, no chest pain or shortness of breath. Alert and oriented. No slurred speech or focal weakness.
Objective Data
-
Vital Signs:
Vital Signs
Temp Pulse Resp BP Pulse Ox
98.2 F 69 18 149/82 96
04/30/25 07:50 04/30/25 07:50 04/30/25 07:50 04/30/25 07:50 04/30/25 07:50
I&O
04/29/25 04/30/25 05/01/25
06:59 06:59 06:59
Intake Total 240 / 240 1620 / 1620 240 / 240
Balance 240 / 240 1620 / 1620 240 / 240
[2025-04-30 12:51] LABS: Hematocrit 31.3 % (37.0-47.0); Hemoglobin 9.8 g/dL (12.0-16.0); Mean Corp Hgb Conc. 31.3 g/dL (33.0-37.0); Mean Corpuscular Hgb 27.2 pg (27.0-31.0); Mean Corpuscular Volume 86.9 fL (81.0-99.0); Mean Platelet Volume 9.8 fL (7.4-10.4); Platelet Count 402 10^3/uL (130-400); Red Cell Dist. Width 15.3 % (11.5-14.5); White Blood Cell Count 7.3 10^3/uL (4.8-10.8)
[2025-04-30 12:58] VITALS: BP 150/87; PULSE 64
[2025-04-30 13:00] VITALS: BP 150/87; PULSE 64
[2025-04-30 13:48] LABS: Blood Urea Nitrogen 13 mg/dl (7-17); Calcium 9.5 mg/dl (8.4-10.2); Carbon Dioxide 27 mmol/L (22-30); Chloride 108 mmol/L (98-107); Estimated Creatinine Clearance 59 ml/min; Glucose 104 mg/dl (70-99); Potassium 4.9 mmol/L (3.5-5.1); Sodium 142 mmol/L (135-145); eGFR > 60.00
[2025-04-30 15:35] VITALS: BP 135/85
[2025-04-30] MEDS: LIPITOR 80 MG PO (17:11)
--- NOTE | 2025-04-30 17:24 | CON.MD ---
Consultation - Medical
-
Chief Complaint:�Stroke
�
History of Present Illness:�75-year-old right-handed female with PMH (as below) presented to [facility] on 04/26/2025 with confusion and weakness. She recently underwent a left total hip arthroplasty at [facility] on
04/20/2025. She was discharged to home and when she woke up from a nap in the evening she attempted to use her phone and place a food order for dinner. She was unable to work her phone and could not figure how to use it. The next morning she was
able to call and speak with her daughter she felt somewhat improved but still woozy. She was seen by visiting nurses and was sent to the hospital for further evaluation.
Concern initially for narcotic use. Initial CT of the head unremarkable in the ED. Noted with elevated blood pressure concern for lack of medication versus TIA/CVA. MRI of the brain noting acute to subacute ischemic strokes in bilateral
hemispheres thought to be most likely thromboembolic. Patient not a candidate for tenecteplase or intra-arterial thrombectomy due to the timeframe. She was started on aspirin 325 mg and initiated on atorvastatin 80 mg at night. Plan for
outpatient echo and implantable cardiac rhythm monitor per neurology. Also noted with stable postoperative anemia. Placed on heparin for DVT prophylaxis. Continues with weightbearing as tolerated to left lower extremity with total hip precautions.
�
Past Medical History:�Hypertension, vitiligo
Procedure History:�Multiple C-sections, ex lap and lysis of adhesions, left total hip arthroscopy 04/26/2025
Family History:�None pertinent
�
Social History:�
Functional Level Premorbidly:�Independent with all activities�
Functional Level Currently:�Min assist for transfers, min assist ambulating 40 feet x 1 with rolling walker. Min assist lower extremity self-care and toileting.
�
Tobacco:�Denies�
Alcohol:�Occasional
Drug use:�None
�
Lives with:�Alone
24-hour assistance available:�
Number of floors:�1
# steps to enter:�12
Driving:�No takes public transportation or Uber
Occupation:�Retired
�
�
Allergies:�
Allergy/AdvReac Type Severity Reaction Status Date / Time
No Known Allergies Allergy Verified 04/26/25 14:41
�
Review of Systems:�
Constitutional: (x) abNormal _fatigue
Eye: (x) Normal _
Ear/Nose/Throat: (x) Normal _
Respiratory: (x) Normal _
Cardiovascular: (x) Normal _
Gastrointestinal: (x) Normal _
Genitourinary: (x) Normal _
Musculoskeletal: (x) abNormal _mild left hip pain. Has some right hip pain as well, needs to be replaced
Integumentary: (x) abNormal _incision
Neurologic: (x) abNormal _stroke with difficulty doing day-to-day activities
Psychiatric: (x) Normal _
Endocrine: (x) Normal _
Hematologic/Lymphatic: (x) Normal _
Allergic/Immunologic: (x) Normal _
�
Medications:�
Active Current Visit Medication List
Category Date Time Status
Acetaminophen [Tylenol] Med 04/30/25 12:42 Active
650 mg PO Q6HPRN PRN
Aspirin Chewable [Low Strength Aspirin] Med 04/30/25 08:00 Active
81 mg PO DAILY
Atorvastatin [Lipitor] Med 04/28/25 18:00 Active
80 mg PO QPM
Clopidogrel Bisulfate [Plavix] Med 04/30/25 08:00 Active
75 mg PO DAILY
Docusate Sodium [Colace] Med 04/26/25 21:30 Active
100 mg PO BID
Flush (0.9% Sodium Chloride) [Flush (Nss)] Med 04/26/25 22:00 Active
See Dose Instructions IV PER PROTOCOL
Heparin Med 04/26/25 21:30 Active
5,000 units SC Q12
HydrALAZINE [Apresoline] Med 04/27/25 02:35 Active
5 mg IV Q6HPRN PRN
Indapamide [Lozol] Med 04/27/25 08:00 Active
2.5 mg PO DAILY
Lisinopril [Zestril] Med 04/26/25 21:30 Active
20 mg PO BID
Polyethylene Glycol Powder [Miralax] Med 04/26/25 21:30 Active
17 grams PO DAILYPRN PRN
Sennosides [Senokot] Med 04/26/25 22:00 Active
17.2 mg PO HS
�
Vitals:�
Temp Pulse Resp BP Pulse Ox
98.5 F 68 18 135/85 97
04/30/25 15:35 04/30/25 15:35 04/30/25 15:35 04/30/25 15:35 04/30/25 15:35
Height 5 ft 2 in
Actual Weight 95.906 kg
Body Mass Index (BMI) 38.7
�
Physical Exam:�
General Appearance/Observation: Well-developed, well-nourished female in no apparent distress.�
Pain/Comfort Assessment: Mild left postsurgical pain and right hip arthritic pain
Mood/Affect: Appropriate�
�
Integumentary/Operative Site:�Vitiligo. Left hip Aquacel with scant serosanguineous drainage
�
Eyes: Conjunctiva/Lids: normal��� Pupils: pupils equal round and reactive to light and Accommodation
Ears/Nose/Throat: oral mucosa moist, throat clear.������������ Lips/Teeth/Gums: normal
Neck: Slight muscle spasm, no tenderness�
Cardiovascular: Heart: regular, no murmur�
Pulses: dorsalis pedis 2+ bilaterally�
Respiratory: Respiratory Effort/Chest Expansion: normal������ Auscultation: Clear to auscultation bilaterally
Gastrointestinal: abdomen not tender, no distension, normal abdominal bowel sounds
Genitourinary: No Cook�
Rectal Exam: Deferred�
Extremities:�Edema: None�Cyanosis: None�Trophic�changes: None
�
Neurology Exam:
Orientation: Alert, Oriented to self, Time, Place�
Memory: Intact for recent medical concerns
Repetition: Intact
Comprehension: Intact
Two step command: Intact
Cranial Nerves:
�� CNII:�Pupillary light reflex: Intact���Visual Field: Intact
�� CN III, IV, : Extraocular muscles: Intact�
�� CN V:�Facial Sensation�at�Forehead: Intact,�Maxilla: Intact,�Mandible: Intact
�� CN VII:�Facial movement: Slight facial asymmetry
�� CN VIII:�Hearing: Normal
�� CN IX/X:�Speech & swallow: Occasional difficulty finding words�position of Uvula: Midline
�� CN XI:�Shoulder shrug: Symmetric
�� CN XII:�Tongue protrusion: Midline
Sensory:
�� Light touch: Intact in bilateral upper and lower extremities
�
Reflexes:
�� Biceps: 2+ bilaterally
�� Brachioradialis: 2+ bilaterally
�� Triceps: 2+ bilaterally
�� Patellar: 2+ bilaterally
�� Achilles: 0 bilaterally
�� Babinski: Down going bilaterally
�� Clonus: None
�� Shahram: Negative bilaterally�
Cerebellar: Dysmetria/Ataxia: None�
Musculoskeletal: Motor: (Manual muscle scale 0-5)�
Muscle SA EF WE EE FF FA HF KE DF EHL PF
Right� 5 5 5 5 5 4 3 5 5 5 5
Left 5 5 5 5 5 4 2 5 5 5 5
�
Tone: Normal in all extremities�
Range of Motion: Passively within normal limits in all extremities�
�
Lab Results
Laboratory Data
04/30/25 12:35
04/30/25 12:35
Total Bilirubin 0.7 mg/dl (0.2-1.3) 04/26/25 15:02
AST 34 U/L (14-36) 04/26/25 15:02
ALT 22 U/L (0-35) 04/26/25 15:02
Alkaline Phosphatase 100 U/L (38-126) 04/26/25 15:02
Total Protein 6.9 g/dl (6.3-8.2) 04/26/25 15:02
Albumin 3.8 g/dl (3.5-5.0) 04/26/25 15:02
�
Diagnostic Results:�as per HPI�
CLINICAL INDICATION: CVA / TIA
TECHNIQUE: An MRI examination of the brain was performed without intravenous contrast on a 3 Chapis magnet. 3 plane T1, axial diffusion, axial T2 gradient echo, axial FLAIR, axial T2, and coronal T2-weighted imaging sequences were obtained.
COMPARISON: Head CT 04/26/2025.
FINDINGS:
Scattered small foci of restricted diffusion in the bilateral cerebral white matter consistent with acute or subacute infarcts.
Mild age-related parenchymal atrophy. T2/FLAIR hyperintense signal in the white matter of the bilateral cerebral hemispheres most compatible with the changes of moderate chronic microangiopathic ischemia. No mass effect, midline shift, or extra
axial collection. Small chronic infarct of the left caudate head/anterior limb of the left internal capsule. Small chronic infarcts in the right frontoparietal titus radiata. Small chronic infarct in the paramedian left occipital lobe.
The vascular flow voids at the skull base are unremarkable, as far as visualized.
Mucosal thickening throughout the paranasal sinuses, most severe in the bilateral ethmoid sinuses. The mastoid air cells are clear.
IMPRESSION:
Small scattered acute or subacute infarcts in the bilateral cerebral white matter. The distribution would suggest embolic phenomenon.
�
Assessment
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
in ADL and ambulatory dysfunction.
Plan�
PM&R�PT/OT to increase independence with ADLs, improve balance, coordination, endurance, strength, mobility, community reintegration, decreased burden of care on others and family education.�
�
CVA: Secondary prophylaxis with aspirin 325 mg daily, Plavix daily, and atorvastatin 80 mg at night, and blood pressure control (SBP less than 180 and diastolic less than 100 to participate with therapy for ischemic stroke). Continue to monitor
neurologic status.�
-Will require outpatient echo and implantable cardiac rhythm monitor per neurology
Aphasia: speech evaluation�
Status post bilateral left JUAN 04/20/2025: Monitor incision, pain control, posterior hip precautions/incision care per orthopedics, may shower, dressings can be removed postop day 7, ksenia removed postop day 14. Maintain full range of motion.�
�
HTN: Blood pressure elevated in acute care likely related to stroke. Indapamide 2.5 mg daily, lisinopril 20 mg twice daily. monitor closely�
Postoperative anemia: 9.8 from 9.5 from 10.3. Monitor.
�
Psych: Psychology consult.� Monitor mood, adjust medications as needed.�
Skin: monitor for pressure sores/rashes/lesions.�
Pain: acetaminophen or oxycodone as needed.�
Bowel: Colace and Senna, PRN bisacodyl.�
Bladder: Time void, PVRs, PRN straight cath.�
DVT Prophylaxis: Mechanical and heparin.�
Pulmonary: Incentive spirometry�
Morbid obesity: Continue to auto travel counselor patient about diet adjustments to control obesity. Body habitus and increased force to move body and extremities causes further difficulty with functional tasks.�
Safety: Continue to reinforce assistance with all transfers.�
Code Status:� Full code per chart
Dispo�(date/plan/equipment needs): Home with family care.� Social history reviewed.�
Functional and Medical Goals:�Modified Independent with ADL�s, ambulation, transfers�
Discharge Destination:�Acute inpatient rehabilitation
�
�
Thank you for allowing me to care for your patient. Please contact me with any questions or concerns.
Consultation
-
Date/Time Consultation Performed: 04/30/2025
Requesting Provider: Dr. Chad Burks
Performing Provider: Dr. Antonio Cintron
Reason for Consultation: Stroke
[2025-04-30 19:00] VITALS: BP 184/68
[2025-04-30] MEDS: SENOKOT 17.2 MG PO (21:09)
[2025-04-30 23:00] VITALS: BP 179/80
[2025-04-30] MEDS: TYLENOL 650 MG PO (23:59)
[2025-05-01 03:00] VITALS: BP 133/59
[2025-05-01 06:00] VITALS: BMI 38.1
[2025-05-01 07:16] VITALS: BP 163/84
--- NOTE | 2025-05-01 08:41 | W.PN.HOSP.TC ---
Addendum entered and electronically signed by Lyndon Burks MD 05/01/25 14:00:
Acute CVA is unexpected but is NOT a complication of the surgery
Original Note:
Today's Communication/Plan
-
Discharge planning
Assessment / Plan
Assessment / Plan
Physical exam:
General: Well Developed, Well Nourished and No Apparent Distress
HEENT: Normocephalic, Atraumatic and Moist Mucous Membranes
Respiratory: Clear to Auscultation; Negative Wheezes, Rales or Rhonchi
Cardiac: Regular Rhythm and S1/S2
GI: Soft, Nontender and Nondistended
Musculoskeletal: No Clubbing, No Cyanosis and No Edema
Neuro: Awake, Alert and Oriented, no neurological deficits appreciated on my exam
Psych: Calm
A/P:
Acute stroke, most likely thromboembolic:
MRI consistent with subacute ischemic stroke in bilateral cerebral white matter but neurology feels more in the left hemispheric.
CTA no significant LVO
Dual antibiotic therapy aspirin Plavix for 21 days and then mono therapy and continue statins
Outpatient implantable cardiac rhythm monitor evaluation with cardiology
Echocardiogram with normal ejection fraction and no thrombus
Health Navigator consulted yesterday
Updated daughter over the phone yesterday
Medically stable for discharge-waiting for case management and rehab for discharge disposition
Hypertension-upon admission hypertensive urgency:
Continue indapamide 2.5 mg p.o. daily and lisinopril 40 mg daily (20 mg twice a day in the hospital)
Hyperlipidemia:
Continue statin
LDL 125
Recent left total hip arthroplasty:
Discontinue narcotics
Tylenol as needed
Lovenox for DVT prophylaxis
Prediabetes:
Hemoglobin A1c 5.9
Lifestyle changes modification
Anemia:
Stable
Vitiligo:
Outpatient follow-up
DVT prophylaxis:
Heparin change to Lovenox SQ
CODE STATUS:
Full code
Anticipated Discharge: Today
Subjective/Interval History
-
Date of Service: May 01, 2025
No new complaints. No focal weakness or slurred speech.
Objective Data
-
Vital Signs:
Vital Signs
Temp Pulse Resp BP Pulse Ox
98.6 F 75 17 163/84 96
05/01/25 07:16 05/01/25 07:16 05/01/25 07:16 05/01/25 07:16 05/01/25 07:16
I&O
04/30/25 05/01/25 05/02/25
06:59 06:59 06:59
Intake Total 1620 / 1620 840 / 840
Balance 1620 / 1620 840 / 840
[2025-05-01] MEDS: LOZOL 2.5 MG PO (09:05)
[2025-05-01] MEDS: LOW STRENGTH ASPIRIN 81 MG PO (09:06)
[2025-05-01] MEDS: HEPARIN SC (09:06)
[2025-05-01] MEDS: PLAVIX 75 MG PO (09:06)
[2025-05-01] MEDS: COLACE 100 MG PO (09:06)
[2025-05-01] MEDS: ZESTRIL 20 MG PO (09:06)
--- NOTE | 2025-05-01 09:22 | PN.CDI ---
CDI
- -
CDI:
Physician Documentation Request
Admit Date: 04/28/25 09:13
Dear Doctor Kimmie,
Patient admitted for stoke.
04/29 Hospitalist PN: 'Acute CVA...Patient reports surgery at [facility] on 04/20...Continue full-dose ASA for post-op DVT prophylaxis.'
Please clarify the following:
Acute CVA is a complication of the surgery
Acute CVA is unexpected but is NOT a complication of the surgery
Acute CVA is an expected occurrence and is not a complication of surgery
Acute CVA is inherent to/unavoidable during the surgery and is not a complication
Other
Use of terms such as suspected, likely, concern for, or probable (associated with a specific diagnosis that is being evaluated, monitored, or treated as if it exists) are acceptable and can be coded in the inpatient setting, when documented at the
time of discharge.
Thank you,
Xochitl Carrasco RN, BSN
CDI Specialist
Available via [employer] text
Please use your independent medical judgment in providing your response.
[2025-05-01] MEDS: TYLENOL 650 MG PO (11:09)
--- NOTE | 2025-05-01 13:44 | CM ---
Reviewed the chart notes and spoke with Leslie Ward who is covering for [facility]. Patient accepted. CM continues to be available to patient/family and is monitoring medical plan for needs at discharge.
Plan: Discharge to [facility] when medically stable.
Call report to: [phone]
Fax report to: [phone]
--- NOTE | 2025-05-01 14:50 | W.DCSUMMARY ---
Addendum entered and electronically signed by Lyndon Burks MD 05/02/25 08:23:
Hypertensive emergency upon admission.
Original Note:
Discharge Summary
Discharge Data
Date of Admission: 04/28/25
Date of Discharge: 05/01/25
Total time spent discharging patient (in min): 35
-
Pending Results: No
Hospital Course
Patient 75 years old female history of HTN, Vitiligo, recent left hip arthroplasty, presented to the hospital with acute onset of confusion. Neurology was consulted. She was felt not to be a candidate for tPA or thrombolysis. Patient had
echocardiogram unremarkable. Neurology recommended dual antiplatelet therapy for 3 weeks and then switch to monotherapy and high-dose statins. Patient did well rest of the hospital stay. She was on aspirin for DVT prophylaxis but given the she is
on dual antiplatelet therapy and dose was decreased we recommend to switch to Lovenox for DVT prophylaxis from hip surgery perspective for the recommended duration (she already has completed more than a week). Rehab also was consulted and she is
accepted for further rehabilitation. No other events were noticed.
Discharge duration: 35 minutes
Discharge Plan
-
Patient Disposition: Acute Rehab Facility
Discharge Diagnosis/Procedures: Acute stroke.
Hypertensive urgency
Diet: Low Cholesterol and 2 Gram Sodium
Activity: As tolerated
Blood Work: Please PCP to order CBC, BMP within 1 week
Other Services: PT and OT
Referrals:
orthopeding, [facility] [Other, Orthopedics] - in one to two weeks
Fox Penn MD [Active, Neurology] - in three to four weeks
UNKNOWN - PT DOES,NOT KNOW [Family Provider]
Prescriptions:
New
atorvastatin 80 mg Tablet
80 mg PO QPM Qty: 0 0RF
clopidogrel 75 mg Tablet
75 mg PO DAILY Qty: 21 0RF
aspirin 81 mg Tablet,Chewable
81 mg PO DAILY Qty: 0 0RF
acetaminophen 325 mg Tablet
650 mg PO Q6HPRN PRN (Reason: mild pain/ fever>100.5F) Qty: 20 0RF
enoxaparin [Lovenox] 40 mg/0.4 mL syringe
40 mg SC DAILY 14 Days Qty: 5.6 0RF
Continued
lansoprazole 30 mg capsule,delayed release(DR/EC)
30 mg PO DAILY
sennosides [senna] 8.6 mg Tablet
8.6 mg PO DAILYPRN PRN (Reason: constipation)
indapamide 2.5 mg Tablet
2.5 mg PO DAILY
lisinopril 40 mg Tablet
40 mg PO DAILY
Discontinued
aspirin 81 mg Tablet,Delayed Release (Dr/Ec)
81 mg PO BID
Rx Instructions:
for 34 days after surgery
oxycodone 5 mg Tablet
5 mg PO Q6HPRN PRN (Reason: severe pain)
Discharge Orders:
Discharge Patient (As Directed); Ordered 05/01/25
Ordered By: Lyndon Burks
Discharge Date and Time
Print Language: FRENCH
[2025-05-01 15:00] VITALS: BP 153/72
--- NOTE | 2025-05-02 07:59 | PN.CDI ---
CDI
- -
CDI:
Physician Documentation Request
Admit Date: 04/28/25 09:13
Dear Doctor Kimmie,
Patient admitted for stroke.
05/01 Hospitalist PN: 'Acute stroke, most likely thromboembolic...Hypertension-upon admission hypertensive urgency: Continue indapamide 2.5 mg p.o. daily and lisinopril 40 mg daily (20 mg twice a day in the hospital)'
Selected Entries
04/26/25
16:36 04/26/25
17:25 04/26/25
19:43
Blood pressure 206/99 195/95 187/89
Clarify which, if any of the following, is a more accurate diagnosis reflecting the type and acuity of the documented hypertension:
Hypertensive Emergency - B/P is severely elevated (systolic > or = to 180 or diastolic > or = to 110) but can occur at lower levels especially in patients who did not previously have high B/P. There is usually associated organ damage. Symptoms may
include: memory loss, LOC, CVA, TN, angina, renal failure, pulmonary edema. Generally requires more aggressive treatment and a hospitalization.
Hypertensive Urgency - B/P is severely elevated (systolic > or = to 180 or diastolic > or = to 110) but there is no associated organ damage. Symptoms may include: headache, shortness of breath, nosebleeds, severe anxiety. Treatment usually consists
of addition to or adjusting of oral medications and does not generally necessitate hospitalization.
Essential primary hypertension
Other (please specify)
Use of terms such as suspected, likely, concern for, or probable (associated with a specific diagnosis that is being evaluated, monitored, or treated as if it exists) are acceptable and can be coded in the inpatient setting, when documented at the
time of discharge.
Thank you,
Xochitl Carrasco RN, BSN
CDI Specialist
Available via [employer] text
Please use your independent medical judgment in providing your response.
== END 2025-05-01 16:44 | DRG 304 ==
LOC: 2 SOUTH 09:13
PROVIDERS: Student in an Organized Health Care Education/Training Program; ADMITTING PHYSICIAN Hospitalist; ATTENDING PHYSICIAN Hospitalist; CONSULT PHYSICIAN Physical Medicine & Rehabilitation; CONSULT PHYSICIAN Psychiatry & Neurology Neurology; EMERGENCY PHYSICIAN Emergency Medicine
DX: I16.1 Hypertensive emergency (principal); I63.89 Other cerebral infarction; D64.9 Anemia, unspecified; I10 Essential (primary) hypertension; E66.01 Morbid (severe) obesity due to excess calories; Z96.642 Presence of left artificial hip joint; E78.00 Pure hypercholesterolemia, unspecified; R73.03 Prediabetes; Z68.38 Body mass index [BMI] 38.0-38.9, adult; Z79.82 Long term (current) use of aspirin; Z79.899 Other long term (current) drug therapy; Z87.891 Personal history of nicotine dependence
CPT/HCPCS: 70450; 70496; 70498; 70551; 80048; 80053; 80061; 81003; 83036; 84443; 85025; 85027; 92523; 92610; 93306; 97110; 97116; 97129; 97163; 97167; 97530; 97535; 99284; Q9967

== ENCOUNTER → 2025-05-24 12:19 | Outpatient (REF) | payer MEDICARE, OTHER, SELFPAY ==
[2025-05-24 13:02] LABS: % Basophils 0.6 % (0-2); % Eosinophils 3.5 % (0-6); % Immature Granulocytes 0.4 % (0-0.5); % Lymphocytes 35.7 % (20.5-51.1); % Monocytes 11.8 % (1.7-9.3); Absolute Eosinophils 0.2 10^3/uL (0-0.7); Absolute Lymphocytes 1.7 10^3/uL (1.2-3.4); Absolute Monocytes 0.6 10^3/uL (0.1-0.6); Absolute Neutrophils 2.3 10^3/uL (1.4-6.5); Hematocrit 30.6 % (37.0-47.0); Hemoglobin 9.5 g/dL (12.0-16.0); Mean Corpuscular Hgb 27.1 pg (27.0-31.0); Mean Corpuscular Volume 87.2 fL (81.0-99.0); Mean Platelet Volume 9.6 fL (7.4-10.4); Nucleated Red Blood Cells % 0 %; Platelet Count 384 10^3/uL (130-400); Red Blood Cell Count 3.51 10^6/uL (4.20-5.40); Red Cell Dist. Width 16.6 % (11.5-14.5); White Blood Cell Count 4.8 10^3/uL (4.8-10.8)
[2025-05-24 14:14] LABS: ALT (SGPT) 25 U/L (0-35); AST (SGOT) 24 U/L (14-36); Albumin 3.6 g/dl (3.5-5.0); Alkaline Phosphatase 160 U/L (38-126); Blood Urea Nitrogen 16 mg/dl (7-17); Calcium 9.7 mg/dl (8.4-10.2); Carbon Dioxide 25 mmol/L (22-30); Chloride 111 mmol/L (98-107); Glucose 96 mg/dl (70-99); Potassium 4.8 mmol/L (3.5-5.1); Sodium 142 mmol/L (135-145); Total Bilirubin 0.3 mg/dl (0.2-1.3); Total Protein 6.8 g/dl (6.3-8.2); eGFR > 60.00
== END ==
LOC: CLAB 12:19
PROVIDERS: ATTENDING PHYSICIAN Internal Medicine
DX: I63.89 Other cerebral infarction (principal)
CPT/HCPCS: 36415; 80053; 85025